=== PATIENT | female | born 1945 | race Caucasian/White ===

== ENCOUNTER → 2017-01-28 | Outpatient (CLI) | payer MEDICARE, BC ==
[2017-01-28 12:35] LABS: Basophils # (A) 0.1 k/uL (0-0.2); Basophils % (A) 1 %; CH 31.1; CHCM 33.4; Eosinophils # (A) 0.2 k/uL (0-0.7); Eosinophils % (A) 3 %; HCT 48.8 % (34.0-46.0); HDW 2.33; HGB 16.1 gm/dL (11.4-16.0); Luc # (Auto) 0.19; Luc % (Auto) 3; Lymphocytes % (A) 27 %; MCH 30.7 pg (25.0-35.0); MCHC 32.9 g/dL (31.0-37.0); MCV 93.3 fL (80.0-100.0); Mean Platelet Volume 7.4; Monocytes # (A) 0.4 k/uL (0-1.0); Monocytes % (A) 5 %; Neutrophils # (A) 4.4 k/uL (1.3-7.7); Neutrophils % (A) 60 %; RBC 5.23 m/uL (3.80-5.40); RDW 12.9 % (11.5-15.5); WBC 7.3 k/uL (3.8-10.6); WBC (Perox) 7.57
[2017-01-28 13:03] LABS: ALT 49 U/L (9-52); AST 74 U/L (14-36); Alkaline Phosphatase 53 U/L (38-126); Anion Gap 12 mmol/L; Blood Urea Nitrogen 16 mg/dL (7-17); Calcium 10.1 mg/dL (8.4-10.2); Carbon Dioxide 26 mmol/L (22-30); Chloride 104 mmol/L (98-107); Glucose 120 mg/dL (74-99); Non-African American GFR(MDRD) >60 (>60 ml/min/1.73 sqM); Potassium 4.4 mmol/L (3.5-5.1); Sodium 142 mmol/L (137-145); Total Bilirubin 0.7 mg/dL (0.2-1.3); Total Protein 7.6 g/dL (6.3-8.2)
== END ==
LOC: LABWHC1 12:02
PROVIDERS: ATTEND Internal Medicine Gastroenterology
DX: K76.0 Fatty (change of) liver, not elsewhere classified (principal)
CPT/HCPCS: 36415; 80053; 85025

== ENCOUNTER → 2017-03-05 | Outpatient (CLI) | payer MEDICARE, BC ==
--- NOTE | 2017-03-05 13:28 | MM ---
Reason for exam: follow-up at short interval from prior study. Last mammogram was performed 6 months ago. History: Patient is postmenopausal, has history of colon cancer at age 65, and has history of bilateral breast cancer at age 62. Benign US biopsy breast VAD RT of the right breast, September 10, 2016. Benign left mammotome panel of the left breast, August 24, 2013. Excisional biopsy of the left breast, September 26, 2007. Malignant left mammotome panel of the left breast, September 10, 2007. Radiation therapy of the left breast, 2006. Stereotactic core biopsy, April 12, 2003. Benign stereotactic core biopsy of the right breast, March 20, 2000. Cyst aspiration of the right breast. Core biopsy of the right breast. Excisional biopsy of the right breast. Radiation therapy of the left breast. Took estrogen for 3 years beginning at age 51. Took antineoplastic for 2 years beginning at age 62. Physical Findings: Nurse did not find any significant physical abnormalities on exam. MG 3D Diag Mammo W/Cad RT CC and MLO view(s) were taken of the right breast. Prior study comparison: September 10, 2016, right breast MG diagnostic mammo RT wo CAD. August 27, 2016, right breast US breast RT. August 27, 2016, bilateral MG 3d diag mammo w/cad SHAY. August 15, 2015, bilateral MG 3d diag mammo w/cad SHAY. The breast tissue is heterogeneously dense. This may lower the sensitivity of mammography. Previous mammotome biopsy within the right breast x 2. There is chronic nodularity in the right breast. No significant new findings when compared with previous films. These results were verbally communicated with the patient and result sheet given to the patient on 03/05/17. ASSESSMENT: Incomplete: need additional imaging evaluation, BI-RAD 0 RECOMMENDATION: Ultrasound of the right breast.
--- NOTE | 2017-03-05 13:35 | USB ---
Reason for exam: additional evaluation requested from abnormal screening. History: Patient is postmenopausal, has history of colon cancer at age 65, and has history of bilateral breast cancer at age 62. Benign US biopsy breast VAD RT of the right breast, September 10, 2016. Benign left mammotome panel of the left breast, August 24, 2013. Excisional biopsy of the left breast, September 26, 2007. Malignant left mammotome panel of the left breast, September 10, 2007. Radiation therapy of the left breast, 2006. Stereotactic core biopsy, April 12, 2003. Benign stereotactic core biopsy of the right breast, March 20, 2000. Cyst aspiration of the right breast. Core biopsy of the right breast. Excisional biopsy of the right breast. Radiation therapy of the left breast. Took estrogen for 3 years beginning at age 51. Took antineoplastic for 2 years beginning at age 62. US Breast RT Right breast ultrasound includes all four quadrants, the retroareolar region and axilla. Finding demonstrate a 0.5 x 0.4 x 0.2cm too small to characterize lesion at 1 o'clock, a 0.4 x 0.3 x 0.4cm too small to characterize lesion at 5 o'clock, a 0.6 x 0.4 x 0.4cm mixed lesion at 6 o'clock, this is very small and could represent a septated cyst, but internal flow is seen for which 6 month follow up is recommended, a 1.1 x 0.7 x 0.8cm mixed lesion, likely a complicated cyst for which a 6 month follow up is recommended, a 1.1 x 0.8 x 1.0cm cystic, benign lesion at 7 o'clock, a 1.2 x 1.1 x 1.2cm mixed lesion at 8 o'clock probably 2 adjacent complicated cysts for which a 6 month follow up is recommended, a 0.9 x 0.6 x 0.8 cystic, benign lesion at 9 o'clock , and a 0.8 x 0.8 x 0.6cm cystic, benign lesion at 11 o'clock. These results were verbally communicated with the patient and result sheet given to the patient on 03/05/17. ASSESSMENT: Probably benign, BI-RAD 3 RECOMMENDATION: Follow-up diagnostic mammogram of both breasts in 6 months. Back on schedule. Ultrasound of the right breast in 6 months.
== END | disposition home or self-care (01) ==
LOC: RADMAMWWP 09:32
PROVIDERS: ATTEND Surgery
DX: R92.8 Other abnormal and inconclusive findings on diagnostic imaging of breast (principal); R92.2 Inconclusive mammogram
CPT/HCPCS: 76641; G0206; G0279

== ENCOUNTER → 2017-08-26 | Outpatient (CLI) | payer MEDICARE, BC ==
[2017-08-26 09:32] LABS: HCT 50.6 % (34.0-46.0); HGB 16.5 gm/dL (11.4-16.0); MCH 29.9 pg (25.0-35.0); MCHC 32.6 g/dL (31.0-37.0); MCV 91.6 fL (80.0-100.0); Mean Platelet Volume 8.2; Platelet Count 196 k/uL (150-450); RBC 5.53 m/uL (3.80-5.40); RDW 13.9 % (11.5-15.5); WBC 6.6 k/uL (3.8-10.6)
[2017-08-26 09:55] LABS: ALT 59 U/L (9-52); AST 70 U/L (14-36); Albumin 4.3 g/dL (3.5-5.0); Alkaline Phosphatase 54 U/L (38-126); Anion Gap 7 mmol/L; Blood Urea Nitrogen 12 mg/dL (7-17); Carbon Dioxide 30 mmol/L (22-30); Chloride 107 mmol/L (98-107); Cholesterol 153 mg/dL (<200); Glucose 105 mg/dL (74-99); HDL Cholesterol 52 mg/dL (40-60); LDL Cholesterol,Calculated 74 mg/dL (0-99); Potassium 4.6 mmol/L (3.5-5.1); Sodium 144 mmol/L (137-145); Total Bilirubin 0.7 mg/dL (0.2-1.3); Total Protein 7.6 g/dL (6.3-8.2); Triglycerides 135 mg/dL (<150)
== END | disposition home or self-care (01) ==
LOC: LABWHC1 08:53
PROVIDERS: ATTEND Family Medicine
DX: R94.5 Abnormal results of liver function studies (principal); Z13.6 Encounter for screening for cardiovascular disorders; R53.83 Other fatigue
CPT/HCPCS: 36415; 80053; 80061; 84443; 85027

== ENCOUNTER → 2017-09-06 | Outpatient (CLI) | payer MEDICARE, BC ==
--- NOTE | 2017-09-06 11:12 | USB ---
Reason for exam: follow-up at short interval from prior study. History: Patient is postmenopausal, has history of colon cancer at age 65, and has history of bilateral breast cancer at age 62. Benign US biopsy breast VAD RT of the right breast, September 10, 2016. Benign left mammotome panel of the left breast, August 24, 2013. Excisional biopsy of the left breast, September 26, 2007. Malignant left mammotome panel of the left breast, September 10, 2007. Radiation therapy of the left breast, 2006. Stereotactic core biopsy, April 12, 2003. Benign stereotactic core biopsy of the right breast, March 20, 2000. Cyst aspiration of the right breast. Core biopsy of the right breast. Excisional biopsy of the right breast. Radiation therapy of the left breast. Took estrogen for 3 years beginning at age 51. Took antineoplastic for 2 years beginning at age 62. US Breast RT Right breast ultrasound includes all four quadrants, the retroareolar region and axilla. Finding demonstrates a 0.4 x 0.4 x 0.4cm oval, mixed, vascular lesion at 6 o'clock, a 0.5 x 1.1 x 0.7cm oval, cystic lesion at 7 o'clock, a 0.3 x 0.4 x 0.3cm oval, mixed lesion at 7 o'clock, a 2.9 x 1.8 x 1.0cm oval, irregular, cystic lesion at 8 o'clock that correlates with mammographic findings, a 0.9 x 0.9 x 0.5cm oval, cystic lesion at 9 o'clock, a 1.1 x 1.1 x 0.8cm oval, lobular, cystic lesion at 10 o'clock that correlates with mammographic findings, 0.8 x 0.9 x 0.5cm oval, cystic lesion at 12 o'clock, a 0.6 x 0.6 x 0.4cm irregular, hypoechoic lesion at 12 o'clock, a 0.4 x 0.3 x 0.3cm oval, hypoechoic lesion at 1 o'clock, a 0.6 x 0.3 x 0.3cm oval, hypoechoic lesion at 1 o'clock, a 0.7 x 0.5 x 0.6cm oval, mixed lesion at 3 o'clock and a 0.6 x 0.5 x 0.2cm oval, hypoechoic lesion at 5 o'clock. These results were verbally communicated with the patient and result sheet given to the patient on 09/06/17. ASSESSMENT: Benign, BI-RAD 2 RECOMMENDATION: Routine screening mammogram of both breasts in 1 year.
--- NOTE | 2017-09-11 08:36 | MM ---
Reason for exam: follow-up at short interval from prior study. Last mammogram was performed 6 months ago. History: Patient is postmenopausal, has history of colon cancer at age 65, and has history of bilateral breast cancer at age 62. Benign US biopsy breast VAD RT of the right breast, September 10, 2016. Benign left mammotome panel of the left breast, August 24, 2013. Excisional biopsy of the left breast, September 26, 2007. Malignant left mammotome panel of the left breast, September 10, 2007. Radiation therapy of the left breast, 2006. Stereotactic core biopsy, April 12, 2003. Benign stereotactic core biopsy of the right breast, March 20, 2000. Cyst aspiration of the right breast. Core biopsy of the right breast. Excisional biopsy of the right breast. Radiation therapy of the left breast. Took estrogen for 3 years beginning at age 51. Took antineoplastic for 2 years beginning at age 62. Physical Findings: Nurse did not find any significant physical abnormalities on exam. MG 3D Diag Mammo W/Cad SHAY Bilateral CC and MLO view(s) were taken. Prior study comparison: March 05, 2017, right breast MG 3d diag mammo w/cad RT. September 10, 2016, right breast MG diagnostic mammo RT wo CAD. The breast tissue is extremely dense which could obscure a lesion on mammography. Previous mammotome biopsy in the right breast x 2. There is chronic nodularity in the right breast, some enlarging cysts on the right breast are present. Posterior surgical changes left breast. These results were verbally communicated with the patient and result sheet given to the patient on 09/06/17. ASSESSMENT: Benign, BI-RAD 2 RECOMMENDATION: Routine screening mammogram of both breasts in 1 year.
== END | disposition home or self-care (01) ==
LOC: RADMAMWWP 08:55
PROVIDERS: ATTEND Surgery
DX: R92.8 Other abnormal and inconclusive findings on diagnostic imaging of breast (principal)
CPT/HCPCS: 76641; G0204; G0279

== ENCOUNTER → 2018-01-27 | Outpatient (CLI) | payer MEDICARE, BC ==
[2018-01-27 11:03] LABS: Basophils # (A) 0.1 k/uL (0-0.2); Basophils % (A) 1 %; Eosinophils # (A) 0.2 k/uL (0-0.7); Eosinophils % (A) 3 %; HCT 47.6 % (34.0-46.0); HGB 15.8 gm/dL (11.4-16.0); Lymphocytes # (A) 1.8 k/uL (1.0-4.8); Lymphocytes % (A) 31 %; MCH 29.7 pg (25.0-35.0); MCHC 33.1 g/dL (31.0-37.0); MCV 89.5 fL (80.0-100.0); Monocytes # (A) 0.3 k/uL (0-1.0); Monocytes % (A) 6 %; Neutrophils # (A) 3.3 k/uL (1.3-7.7); Neutrophils % (A) 58 %; Platelet Count 196 k/uL (150-450); RBC 5.31 m/uL (3.80-5.40); RDW 12.7 % (11.5-15.5); WBC 5.7 k/uL (3.8-10.6)
[2018-01-27 11:16] LABS: Albumin 4.1 g/dL (3.5-5.0); Calcium 9.6 mg/dL (8.4-10.2); Total Bilirubin 0.6 mg/dL (0.2-1.3)
== END | disposition home or self-care (01) ==
LOC: LABWHC1 10:26
PROVIDERS: ATTEND Internal Medicine Gastroenterology
DX: K76.0 Fatty (change of) liver, not elsewhere classified (principal)
CPT/HCPCS: 36415; 80053; 85025

== ENCOUNTER → 2018-10-30 | Outpatient (CLI) | payer MEDICARE ==
--- NOTE | 2018-10-31 08:12 | MM ---
Reason for exam: additional evaluation requested from prior study. Last mammogram was performed 1 year and 2 months ago. History: Patient is postmenopausal, has history of colon cancer at age 65, and has history of bilateral breast cancer at age 62. Benign US biopsy breast VAD RT of the right breast, September 10, 2016. Benign left mammotome panel of the left breast, August 24, 2013. Excisional biopsy of the left breast, September 26, 2007. Malignant left mammotome panel of the left breast, September 10, 2007. Radiation therapy of the left breast, 2006. Stereotactic core biopsy, April 12, 2003. Benign stereotactic core biopsy of the right breast, March 20, 2000. Cyst aspiration of the right breast. Core biopsy of the right breast. Excisional biopsy of the right breast. Radiation therapy of the left breast. Took estrogen for 3 years beginning at age 51. Took antineoplastic for 2 years beginning at age 62. Physical Findings: Nurse Summary: 0.5 x 1cm nodule in the right breast at 1 o'clock (nurse ts). MG 3D Diag Mammo W/Cad SHAY Bilateral CC and MLO view(s) were taken. Prior study comparison: September 06, 2017, bilateral MG 3d diag mammo w/cad SHAY. March 05, 2017, right breast MG 3d diag mammo w/cad RT. September 10, 2016, right breast MG diagnostic mammo RT wo CAD. August 27, 2016, bilateral MG 3d diag mammo w/cad SHAY. August 15, 2015, bilateral MG 3d diag mammo w/cad SHAY. The breast tissue is heterogeneously dense. This may lower the sensitivity of mammography. There are benign appearing round oval circumscribed right masses back to 2014. Benign calcifications in the right breast, similar to priors. Right biopsy marker noted. No suspicious abnormality. Post lumpectomy change on the left. These results were verbally communicated with the patient and result sheet given to the patient on 10/30/18. ASSESSMENT: Benign, BI-RAD 2 RECOMMENDATION: Routine screening mammogram of both breasts in 1 year.
--- NOTE | 2018-10-31 08:19 | USB ---
Reason for exam: additional evaluation requested from prior study. History: Patient is postmenopausal, has history of colon cancer at age 65, and has history of bilateral breast cancer at age 62. Benign US biopsy breast VAD RT of the right breast, September 10, 2016. Benign left mammotome panel of the left breast, August 24, 2013. Excisional biopsy of the left breast, September 26, 2007. Malignant left mammotome panel of the left breast, September 10, 2007. Radiation therapy of the left breast, 2006. Stereotactic core biopsy, April 12, 2003. Benign stereotactic core biopsy of the right breast, March 20, 2000. Cyst aspiration of the right breast. Core biopsy of the right breast. Excisional biopsy of the right breast. Radiation therapy of the left breast. Took estrogen for 3 years beginning at age 51. Took antineoplastic for 2 years beginning at age 62. US Breast RT Right complete breast ultrasound includes all four quadrants, the retroareolar region and axilla. Finding demonstrates a 1.2 x 1.1 x 0.7cm oval, cystic, complex lesion at 1 o'clock, a 1.0 x 0.8 x 0.5cm oval, cystic lesion at 1 o'clock BB, a 0.5 x 0.4 x 0.3cm oval, mixed, probably benign lesion at 1 o'clock BB no clear increase through transmission, a 1.0 x 0.5 x 0.7cm oval, mixed, probably benign lesion at 3 o'clock well defined posterior wall, 0.2cm duct ectasia at 6 o'clock, a 1.6 x 1.2 x 1.1cm oval, cystic lesion at 8 o'clock, a 1.8 x 1.3 x 1.0cm cystic lesion at 9 o'clock, a 1.5 x 1.4 x 1.1cm cystic lesion at 10 o'clock and a 1.3 x 1.2 x 0.7cm cystic lesion at the posterior nipple. These results were verbally communicated with the patient and result sheet given to the patient on 10/30/18. ASSESSMENT: Probably benign, BI-RAD 3 RECOMMENDATION: Ultrasound of the right breast in 6 months.
--- NOTE | 2018-11-03 07:55 | BD ---
EXAMINATION TYPE: Axial Bone Density DATE OF EXAM: 10/30/2018 COMPARISON: NONE CLINICAL HISTORY: Height: 5 FT 3 1/5 IN Weight: 188 FRAX RISK QUESTIONS: Family History (Parent hip fracture): YES Secondary Osteoporosis: 5. Chronic liver disease: FATTY RISK FACTORS HISTORY OF: Active: YES Postmenopausal woman: AGE 49 Take estrogen and/or progesterone medications: DID TAKE HRT UNSURE WHEN AND FOR HOW LONG MEDICATIONS: Additional Medications: NONE Additional History: HAS HAD BREAST CA AND COLON CANCER RADIATION TO BREAST EXAM MEASUREMENTS: Bone mineral densitometry was performed using the [employer] System. Bone mineral density as measured about the Lumbar spine is: ----- L1-L4(G/cm2): 1.304 T Score Values are as follows: ----- L2: -0.7 ----- L3: 0.8 ----- L4: 3.6 ----- L1-L4: 1.0 Bone mineral density has: INCREASED 4.0 % since study of: 2005 Bone mineral density about the R hip (g/cm2): 0.838 Bone mineral density about the L hip (g/cm2): 0.842 T Score values are as follows: -----R Neck: -1.4 -----L Neck: -1.4 -----R Total: -0.7 -----L Total: -0.4 Bone mineral density has: INCREASED 8.3 % since study of: 2005 IMPRESSION: Osteopenia (T Score between -2.5 and -1) at femoral neck level in both hips. There is slightly increased risk of fracture and the patient may be considered for treatment. Re-Screen 2-5 years. NOTE: T-SCORE=SD OF THE YOUNG ADULT MEAN.
== END | disposition home or self-care (01) ==
LOC: RADMAMWWP 14:11
PROVIDERS: ATTEND Family Medicine
DX: N63.12 Unspecified lump in the right breast, upper inner quadrant (principal); M85.88 Other specified disorders of bone density and structure, other site; Z85.3 Personal history of malignant neoplasm of breast; Z78.0 Asymptomatic menopausal state
CPT/HCPCS: 77080; 77066; 76641; G0279; 77062

== ENCOUNTER → 2019-01-22 | Outpatient (CLI) | payer MEDICARE ==
--- NOTE | 2019-01-22 12:14 | XR ---
EXAMINATION TYPE: XR Hip Complete RT DATE OF EXAM: 01/22/2019 COMPARISON: NONE HISTORY: Pain TECHNIQUE: 2 views submitted FINDINGS: There is no evidence of erosive change or acute fracture. Mild concentric narrowing of the joint space. IMPRESSION: 1. No evidence of acute fracture or dislocation. Mild arthropathy.
--- NOTE | 2019-01-22 12:16 | XR ---
EXAM TYPE: LUMBAR SPINE X RAY SERIES COMPARISON: NONE HISTORY: Back pain TECHNIQUE: 3 views are submitted. FINDINGS: Postsurgical changes are seen involving the abdomen. There is a curvature the spine with mild diffuse osteopenia. Vascular calcifications noted. There is severe multilevel degenerative disc disease with most marked findings at L3-4 and L4-L5. The re is a grade 1 anterolisthesis of L3 on L4. Multilevel facet arthropathy noted. Foraminal encroachme nt levels L2-S1 suspected. IMPRESSION: 1. Multilevel severe degenerative disc disease with multilevel facet arthropathy and grade 1 anteroli sthesis L3 on L4.
== END | disposition home or self-care (01) ==
LOC: RADXRMAIN 11:25
PROVIDERS: ATTEND Physician Assistant Medical
DX: M16.11 Unilateral primary osteoarthritis, right hip (principal); M43.16 Spondylolisthesis, lumbar region; M51.36 Other intervertebral disc degeneration, lumbar region; M46.96 Unspecified inflammatory spondylopathy, lumbar region
CPT/HCPCS: 72100; 73502

== ENCOUNTER → 2019-02-24 | Outpatient (CLI) | payer MEDICARE ==
[2019-02-24 16:47] LABS: Albumin 4.5 g/dL (3.80-4.90); Albumin/Globulin Ratio 2.05 (1.60-3.17); Anion Gap 8.9 mmol/L (4.00-12.00); Calcium 9.6 mg/dL (8.7-10.3); Carbon Dioxide 27.1 mmol/L (21.6-31.8); Globulin 2.2 g/dL (1.6-3.3); Potassium 3.9 mmol/L (3.5-5.5); Total Bilirubin 0.5 mg/dL (0.3-1.2); Total Protein 6.7 g/dL (6.2-8.2)
== END | disposition home or self-care (01) ==
LOC: LABWHC1 10:16
PROVIDERS: ATTEND Internal Medicine Gastroenterology
DX: K76.0 Fatty (change of) liver, not elsewhere classified (principal)
CPT/HCPCS: 36415; 80053

== ENCOUNTER → 2019-04-09 | Outpatient (CLI) | payer MEDICARE ==
--- NOTE | 2019-04-09 13:49 | USB ---
Reason for exam: additional evaluation requested from abnormal screening. History: Patient is postmenopausal, has history of colon cancer at age 65, and has history of bilateral breast cancer at age 62. Benign US biopsy breast VAD RT of the right breast, September 10, 2016. Benign left mammotome panel of the left breast, August 24, 2013. Excisional biopsy of the left breast, September 26, 2007. Malignant left mammotome panel of the left breast, September 10, 2007. Radiation therapy of the left breast, 2006. Stereotactic core biopsy, April 12, 2003. Benign stereotactic core biopsy of the right breast, March 20, 2000. Cyst aspiration of the right breast. Core biopsy of the right breast. Excisional biopsy of the right breast. Radiation therapy of the left breast. Took estrogen for 3 years beginning at age 51. Took antineoplastic for 2 years beginning at age 62. Physical Findings: Nurse Summary: palpable at 5 o'clock (nurse kp). US Breast RT Right complete breast ultrasound includes all four quadrants, the retroareolar region and axilla. Finding demonstrates a 1.2 x 1.2 x 0.9cm oval, cystic cluster at 1 o'clock, a 0.6 x 0.5 x 0.2cm oval, cystic, hypoechoic lesion at 1 o'clock, a 0.6 x 0.7 x 0.3cm oval, cystic lesion at 2 o'clock, a 0.7 x 0.6 x 0.5cm oval, cystic cluster at 3 o'clock, a 0.6 x 0.6 x 0.6cm oval, cystic lesion at 5 o'clock previously biopsied with marker, a 1.0 x 1.0 x 0.7cm oval, cystic lesion at 6 o'clock, a 0.3cm ductal ectasia at 6 o'clock, a 0.7 x 0.7 x 0.5cm oval, cystic lesion at 9 o'clock and a 2.3 x 1.7 x 1.0cm oval lesion at 10 o'clock. These results were verbally communicated with the patient and result sheet given to the patient on 04/09/19. ASSESSMENT: Benign, BI-RAD 2 RECOMMENDATION: Follow-up diagnostic mammogram of both breasts in 6 months. Back on schedule. Ultrasound of the right breast in 6 months.
== END | disposition home or self-care (01) ==
LOC: RADUSWWP 09:27
PROVIDERS: ATTEND Family Medicine
DX: Z08 Encounter for follow-up examination after completed treatment for malignant neoplasm (principal); Z85.3 Personal history of malignant neoplasm of breast

== ENCOUNTER → 2019-08-28 | Outpatient (CLI) | payer MEDICARE ==
[2019-08-28 17:45] LABS: African American GFR (CKD) 72.5 (60.0-200.0); Albumin 4.3 g/dL (3.80-4.90); Albumin/Globulin Ratio 1.87 (1.60-3.17); Globulin 2.3 g/dL (1.6-3.3); Total Bilirubin 0.6 mg/dL (0.2-1.2); Total Protein 6.6 g/dL (6.2-8.2)
== END | disposition home or self-care (01) ==
LOC: LABWHC1 11:35
PROVIDERS: ATTEND Internal Medicine Gastroenterology
DX: K76.0 Fatty (change of) liver, not elsewhere classified (principal)
CPT/HCPCS: 36415; 80053

== ENCOUNTER → 2019-12-01 | Outpatient (CLI) | payer MEDICARE ==
--- NOTE | 2019-12-01 10:06 | MM ---
Reason for exam: additional evaluation requested from prior study. Last mammogram was performed 1 year and 1 month ago. History: Patient is postmenopausal, has history of colon cancer at age 65, and has history of bilateral breast cancer at age 62. Benign US biopsy breast VAD RT of the right breast, September 10, 2016. Benign left mammotome panel of the left breast, August 24, 2013. Excisional biopsy of the left breast, September 26, 2007. Malignant left mammotome panel of the left breast, September 10, 2007. Radiation therapy of the left breast, 2006. Stereotactic core biopsy, April 12, 2003. Benign stereotactic core biopsy of the right breast, March 20, 2000. Cyst aspiration of the right breast. Core biopsy of the right breast. Excisional biopsy of the right breast. Radiation therapy of the left breast. Took estrogen for 3 years beginning at age 51. Took antineoplastic for 2 years beginning at age 62. Physical Findings: Nurse did not find any significant physical abnormalities on exam. MG 3D Diag Mammo W/Cad SHAY Bilateral CC and MLO view(s) were taken. Prior study comparison: October 30, 2018, bilateral MG 3d diag mammo w/cad SHAY. September 06, 2017, bilateral MG 3d diag mammo w/cad SHAY. The breast tissue is heterogeneously dense. This may lower the sensitivity of mammography. Previous mammotome biopsy in the right breast x 2. Increasing nodularity on the right. Post surgical change left breast with fat necrosis calcifications. These results were verbally communicated with the patient and result sheet given to the patient on 12/01/19. ASSESSMENT: Incomplete: need additional imaging evaluation, BI-RAD 0 RECOMMENDATION: Ultrasound of the right breast.
--- NOTE | 2019-12-01 10:07 | USB ---
Reason for exam: additional evaluation requested from abnormal screening. History: Patient is postmenopausal, has history of colon cancer at age 65, and has history of bilateral breast cancer at age 62. Benign US biopsy breast VAD RT of the right breast, September 10, 2016. Benign left mammotome panel of the left breast, August 24, 2013. Excisional biopsy of the left breast, September 26, 2007. Malignant left mammotome panel of the left breast, September 10, 2007. Radiation therapy of the left breast, 2006. Stereotactic core biopsy, April 12, 2003. Benign stereotactic core biopsy of the right breast, March 20, 2000. Cyst aspiration of the right breast. Core biopsy of the right breast. Excisional biopsy of the right breast. Radiation therapy of the left breast. Took estrogen for 3 years beginning at age 51. Took antineoplastic for 2 years beginning at age 62. US Breast RT Right complete breast ultrasound includes all four quadrants, the retroareolar region and axilla. Finding demonstrates a 2.3 x 2.3 x 1.1cm cystic lesion at 10 o'clock. Multiple cysts throughout, approximately 11 are counted, largest at 10 o'clock, likely corresponds to the mammographic finding. These results were verbally communicated with the patient and result sheet given to the patient on 12/01/19. ASSESSMENT: Probably benign, BI-RAD 3 RECOMMENDATION: Follow-up diagnostic mammogram of both breasts in 1 year.
== END | disposition home or self-care (01) ==
LOC: RADMAMWWP 08:16
PROVIDERS: ATTEND Family Medicine
DX: R92.8 Other abnormal and inconclusive findings on diagnostic imaging of breast (principal)
CPT/HCPCS: 77066; 76641; G0279; 77062

== ENCOUNTER → 2020-06-06 | Outpatient (CLI) | payer MEDICARE ==
[2020-06-06 19:36] LABS: Albumin 4.4 g/dL (3.80-4.90); Albumin/Globulin Ratio 1.76 (1.60-3.17); Anion Gap 9.1 mmol/L (4.00-12.00); BUN/Creat Ratio 15.56 Ratio (12.00-20.00); Calcium 9.9 mg/dL (8.7-10.3); Carbon Dioxide 26.9 mmol/L (21.6-31.8); Globulin 2.5 g/dL (1.6-3.3); Non-African American GFR(CKD) 62.1 (60.0-200.0); Potassium 4.1 mmol/L (3.5-5.5); Total Bilirubin 0.6 mg/dL (0.2-1.2); Total Protein 6.9 g/dL (6.2-8.2)
== END | disposition home or self-care (01) ==
LOC: LABWHC1 11:21
PROVIDERS: ATTEND Internal Medicine Gastroenterology
DX: K76.0 Fatty (change of) liver, not elsewhere classified (principal)
CPT/HCPCS: 36415; 80053; 81596

== ENCOUNTER → 2020-11-22 | Outpatient (CLI) | payer MEDICARE ==
--- NOTE | 2020-11-22 09:49 | MM ---
Reason for exam: additional evaluation requested from prior study. Last mammogram was performed 1 year ago. History: Patient is postmenopausal, has history of colon cancer at age 65, and has history of bilateral breast cancer at age 62. Benign US biopsy breast VAD RT of the right breast, September 10, 2016. Benign left mammotome panel of the left breast, August 24, 2013. Excisional biopsy of the left breast, September 26, 2007. Malignant left mammotome panel of the left breast, September 10, 2007. Radiation therapy of the left breast, 2006. Stereotactic core biopsy, April 12, 2003. Benign stereotactic core biopsy of the right breast, March 20, 2000. Cyst aspiration of the right breast. Core biopsy of the right breast. Excisional biopsy of the right breast. Radiation therapy of the left breast. Took estrogen for 3 years beginning at age 51. Took antineoplastic for 2 years beginning at age 62. Physical Findings: Nurse did not find any significant physical abnormalities on exam. MG 3D Diag Mammo W/Cad SHAY Bilateral CC and MLO view(s) were taken. XCCL view(s) were taken of the left breast. Prior study comparison: December 01, 2019, bilateral MG 3d diag mammo w/cad SHAY. October 30, 2018, bilateral MG 3d diag mammo w/cad SHAY. The breast tissue is heterogeneously dense. This may lower the sensitivity of mammography. Previous mammotome biopsy in the right breast x 2. Medial asymmetric density left CC view was present in 2017 as well. Post surgical and post therapy change left breast. Fluctuating nodularity right breast, three increased slightly in size. 6 month follow up recommended. These results were verbally communicated with the patient and result sheet given to the patient on 11/22/20. ASSESSMENT: Probably benign, BI-RAD 3 RECOMMENDATION: Follow-up diagnostic mammogram of the right breast in 6 months. (3D)
--- NOTE | 2020-11-22 14:04 | BD ---
EXAMINATION TYPE: Axial Bone Density DATE OF EXAM: 11/22/2020 COMPARISON: NONE CLINICAL HISTORY: Height: 63 Weight: 188.2 FRAX RISK QUESTIONS: Alcohol (3 or more units per day): no Family History (Parent hip fracture): yes Glucocorticoids (More than 3mos): no (Ex: prednisone, prednisolone, methylprednisolone, dexamethasone, and hydrocortisone). History of Fracture in Adulthood: no Secondary Osteoporosis: 1. Type 1 Diabetes: no 2. Hyperthyroidism: no 3. Menopause before 45: no 4. Malnutrition: no 5. Chronic liver disease: yes Rheumatoid Arthritis: no Current Tobacco Use: no RISK FACTORS HISTORY OF: Family History of Osteoporosis: no Active: yes Diet low in dairy products/other sources of calcium: no Postmenopausal woman: age 49 Lost more than 2 inches in height since high school: no MEDICATIONS: none Additional History: EXAM MEASUREMENTS: Bone mineral densitometry was performed using the [employer] System. Bone mineral density as measured about the Lumbar spine is: ----- L1-L4(G/cm2): 1.345 T Score Values are as follows: ----- L2: -0.3 ----- L3: 0.5 ----- L4: 3.4 ----- L1-L4: 1.4 Bone mineral density has: 0 % since study of: 10.30.2018 Bone mineral density about the R hip (g/cm2): 0.854 Bone mineral density about the L hip (g/cm2): 0.812 T Score values are as follows: -----R Neck: -1.3 -----L Neck: -1.6 -----R Total: -0.4 -----L Total: -0.5 Bone mineral density has: increased 0.6 % since study of: 10.30.2018 IMPRESSION: No evidence for osteoporosis or osteopenia. NOTE: T-SCORE=SD OF THE YOUNG ADULT MEAN.
== END | disposition home or self-care (01) ==
LOC: RADMAMWWP 08:15
PROVIDERS: ATTEND Family Medicine
DX: Z08 Encounter for follow-up examination after completed treatment for malignant neoplasm (principal); Z85.3 Personal history of malignant neoplasm of breast; M85.9 Disorder of bone density and structure, unspecified
CPT/HCPCS: 77080; 77066; G0279; 77062

== ENCOUNTER → 2021-01-02 | Outpatient (CLI) | payer MEDICARE ==
[2021-01-02 20:54] LABS: African American GFR (CKD) 63.4 (60.0-200.0); Albumin 4.6 g/dL (3.80-4.90); Albumin/Globulin Ratio 1.84 (1.60-3.17); Anion Gap 7.9 mmol/L (4.00-12.00); Carbon Dioxide 30.1 mmol/L (21.6-31.8); Globulin 2.5 g/dL (1.6-3.3); Non-African American GFR(CKD) 54.7 (60.0-200.0); Potassium 3.7 mmol/L (3.5-5.5); Total Bilirubin 0.6 mg/dL (0.3-1.2); Total Protein 7.1 g/dL (6.2-8.2)
== END | disposition home or self-care (01) ==
LOC: LABWHC1 11:20
PROVIDERS: ATTEND Internal Medicine Gastroenterology
DX: K76.0 Fatty (change of) liver, not elsewhere classified (principal)
CPT/HCPCS: 36415; 80053

== ENCOUNTER → 2021-05-23 | Outpatient (CLI) | payer MEDICARE ==
--- NOTE | 2021-05-26 13:30 | MM ---
Reason for exam: follow-up at short interval from prior study. Last mammogram was performed 6 months ago. History: Patient is postmenopausal, has history of colon cancer at age 65, and has history of bilateral breast cancer at age 62. Benign US biopsy breast VAD RT of the right breast, September 10, 2016. Benign left mammotome panel of the left breast, August 24, 2013. Excisional biopsy of the left breast, September 26, 2007. Malignant left mammotome panel of the left breast, September 10, 2007. Radiation therapy of the left breast, 2006. Stereotactic core biopsy, April 12, 2003. Benign stereotactic core biopsy of the right breast, March 20, 2000. Cyst aspiration of the right breast. Core biopsy of the right breast. Excisional biopsy of the right breast. Radiation therapy of the left breast. Took estrogen for 3 years beginning at age 51. Took antineoplastic for 1 year beginning at age 62. Physical Findings: Nurse did not find any significant physical abnormalities on exam. MG 3D Diag Mammo W/Cad RT CC and MLO view(s) were taken of the right breast. Prior study comparison: November 22, 2020, bilateral MG 3d diag mammo w/cad [facility]. December 01, 2019, bilateral MG 3d diag mammo w/cad [facility]. The breast tissue is heterogeneously dense. This may lower the sensitivity of mammography. There is chronic nodularity in the right breast. No significant new findings when compared with previous films. These results were verbally communicated with the patient and result sheet given to the patient on 05/23/21. ASSESSMENT: Benign, BI-RAD 2 RECOMMENDATION: Follow-up diagnostic mammogram of both breasts in 6 months.
== END | disposition home or self-care (01) ==
LOC: RADMAMWWP 08:54
PROVIDERS: ATTEND Family Medicine
DX: N63.10 Unspecified lump in the right breast, unspecified quadrant (principal); Z78.0 Asymptomatic menopausal state; Z85.3 Personal history of malignant neoplasm of breast; Z85.038 Personal history of other malignant neoplasm of large intestine
CPT/HCPCS: 77065; G0279; 77061

== ENCOUNTER → 2021-07-05 | Outpatient (CLI) | payer MEDICARE ==
[2021-07-05 16:05] LABS: HCT 48.5 % (37.2-46.3); HGB 16.1 g/dL (12.0-15.0); MCH 30.6 pg (27.0-32.0); MCHC 33.2 g/dL (32.0-37.0); MCV 92.2 fL (80.0-97.0); Mean Platelet Volume 11.5 fL (9.5-12.2); Platelet Count 198 X 10*3/uL (140-440); RBC 5.26 X 10*6/uL (4.10-5.20); RDW 12.9 % (11.5-14.5); WBC 4.71 X 10*3/uL (4.50-10.00)
[2021-07-05 23:06] LABS: African American GFR (CKD) 71.5 (60.0-200.0); Albumin 4.4 g/dL (3.80-4.90); Albumin/Globulin Ratio 1.57 (1.60-3.17); Anion Gap 13.5 mmol/L (4.00-12.00); BUN/Creat Ratio 17.78 Ratio (12.00-20.00); Calcium 9.6 mg/dL (8.7-10.3); Carbon Dioxide 22.5 mmol/L (21.6-31.8); Globulin 2.8 g/dL (1.6-3.3); Non-African American GFR(CKD) 61.7 (60.0-200.0); Potassium 4.2 mmol/L (3.5-5.5); Total Bilirubin 0.6 mg/dL (0.2-1.2); Total Protein 7.2 g/dL (6.2-8.2)
== END | disposition home or self-care (01) ==
LOC: LABWHC1 08:54
PROVIDERS: ATTEND Internal Medicine Gastroenterology
DX: K76.0 Fatty (change of) liver, not elsewhere classified (principal)
CPT/HCPCS: 36415; 80053; 85027

== ENCOUNTER → 2021-11-23 | Outpatient (CLI) | payer MEDICARE ==
--- NOTE | 2021-11-23 14:25 | MM ---
Reason for exam: additional evaluation requested from prior study. Last mammogram was performed 6 months ago. History: Patient is postmenopausal, has history of colon cancer at age 65, and has history of bilateral breast cancer at age 62. Benign US biopsy breast VAD RT of the right breast, September 10, 2016. Benign left mammotome panel of the left breast, August 24, 2013. Excisional biopsy of the left breast, September 26, 2007. Malignant left mammotome panel of the left breast, September 10, 2007. Radiation therapy of the left breast, 2006. Stereotactic core biopsy, April 12, 2003. Benign stereotactic core biopsy of the right breast, March 20, 2000. Cyst aspiration of the right breast. Core biopsy of the right breast. Excisional biopsy of the right breast. Radiation therapy of the left breast. Took estrogen for 3 years beginning at age 51. Took antineoplastic for 1 year beginning at age 62. Physical Findings: Nurse did not find any significant physical abnormalities on exam. MG 3D Diag Mammo W/Cad [facility] Bilateral CC and MLO view(s) were taken. Prior study comparison: May 23, 2021, right breast MG 3d diag mammo w/cad RT. November 22, 2020, bilateral MG 3d diag mammo w/cad [facility]. The breast tissue is heterogeneously dense. This may lower the sensitivity of mammography. Previous mammotome biopsy in the right breast. There is chronic nodularity in the right breast. Asymmetric breast tissue bilaterally, greater in the right breast. These results were verbally communicated with the patient and result sheet given to the patient on 11/23/21. ASSESSMENT: Benign, BI-RAD 2 RECOMMENDATION: Routine screening mammogram of both breasts in 1 year.
== END | disposition home or self-care (01) ==
LOC: RADMAMWWP 12:59
PROVIDERS: ATTEND Family Medicine
DX: R92.8 Other abnormal and inconclusive findings on diagnostic imaging of breast (principal); Z85.3 Personal history of malignant neoplasm of breast; Z78.0 Asymptomatic menopausal state
CPT/HCPCS: 77066; G0279; 77062

== ENCOUNTER → 2022-01-08 | Outpatient (CLI) | payer MEDICARE ==
[2022-01-08 19:09] LABS: HCT 47.3 % (37.2-46.3); HGB 15.4 g/dL (12.0-15.0); MCHC 32.6 g/dL (32.0-37.0); Mean Platelet Volume 11.5 fL (9.5-12.2); NRBC Per 100 WBC 0 /100 WBCS (0.0-0.0); Platelet Count 208 X 10*3/uL (140-440); RBC 5.14 X 10*6/uL (4.10-5.20); RDW 12.7 % (11.5-14.5); WBC 7.87 X 10*3/uL (4.50-10.00)
[2022-01-08 19:14] LABS: African American GFR (CKD) 79.3 (60.0-200.0); Albumin 4.1 g/dL (3.8-4.9); Albumin/Globulin Ratio 1.23 (1.60-3.17); BUN/Creat Ratio 17.8 Ratio (12.00-20.00); Blood Urea Nitrogen 14.7 mg/dL (9.0-27.0); Calcium 10.1 mg/dL (8.7-10.3); Carbon Dioxide 26.2 mmol/L (20.0-27.5); Globulin 3.3 g/dL (1.6-3.3); Non-African American GFR(CKD) 68.4 (60.0-200.0); Potassium 3.8 mmol/L (3.5-5.5); Total Bilirubin 0.5 mg/dL (0.30-1.20); Total Protein 7.4 g/dL (6.2-8.2)
== END | disposition home or self-care (01) ==
LOC: LABWHC1 13:36
PROVIDERS: ATTEND Internal Medicine Gastroenterology
DX: K76.0 Fatty (change of) liver, not elsewhere classified (principal)
CPT/HCPCS: 36415; 80053; 85027

== ENCOUNTER → 2022-09-06 | Outpatient (CLI) | payer MEDICARE ==
--- NOTE | 2022-09-06 14:06 | XR ---
EXAMINATION TYPE: XR Hip Complete LT DATE OF EXAM: 09/06/2022 COMPARISON: NONE HISTORY: Pain TECHNIQUE: 2 views submitted FINDINGS: There is no evidence of erosive change or acute fracture. IMPRESSION: 1. No evidence of acute fracture or dislocation.
== END | disposition home or self-care (01) ==
LOC: RADXRMAIN 13:47
PROVIDERS: ATTEND Family Medicine
DX: M25.552 Pain in left hip (principal)
CPT/HCPCS: 73502

== ENCOUNTER → 2022-11-26 | Outpatient (CLI) | payer MEDICARE ==
--- NOTE | 2022-11-27 08:33 | MM ---
Reason for Exam: Screening (asymptomatic). Last screening mammogram was performed 12 month(s) ago. Patient History: Menarche at age 13. First Full-Term at age 25. Postmenopausal. Breast cancer, left, age 62. Previous chest radiation therapy at age 62. Estrogen for 1 year from age 51 until age 52. 09/26/2007, Excisional Biopsy on the Left side. Cyst Aspiration on the Right side. Core Biopsy on the Right side. Excisional Biopsy on the Right side. 09/10/2016, Benign Core Biopsy on the right side. 08/24/2013, Benign Core Biopsy on the left side. 09/10/2007, Malignant Core Biopsy on the left side. 04/12/2003, Stereotactic Core Biopsy. 03/20/2000, Benign Stereotactic Core Biopsy on the right side. Radiation Therapy, left. 2006, Radiation Therapy on the left side. Prior Study Comparison: 11/22/2020 Bilateral Diagnostic Mammogram, [facility]. 05/23/2021 Right Diagnostic Mammogram, [facility]. 11/23/2021 Bilateral Diagnostic Mammogram, [facility]. Tissue Density: The breast tissue is heterogeneously dense. This may lower the sensitivity of mammography. Findings: Analyzed By CAD. There is no suspicious group of microcalcifications within either breast. Benign calcifications within both breasts. No new suspicious mass within the left breast. Previous mammotome biopsy right breast x 2. Fluctuating nodularity within the right breast redemonstrated and increased in size. Postsurgical and postoperative changes of the left breast. Overall Assessment: Probably benign, BI-RAD 3 Management: Diagnostic Mammogram of the right breast in 6 months. A clinical breast exam by your physician is recommended on an annual basis and results should be correlated with mammographic findings. [facility] will attempt to contact patient to return for supplemental views and ultrasound if indicated. Electronically signed and approved by: Dave Fernando D.O.
== END | disposition home or self-care (01) ==
LOC: RADMAMWWP 13:15
PROVIDERS: ATTEND Family Medicine
DX: Z12.31 Encounter for screening mammogram for malignant neoplasm of breast (principal); Z78.0 Asymptomatic menopausal state; Z92.3 Personal history of irradiation
CPT/HCPCS: 77063; 77067

== ENCOUNTER → 2023-03-08 | Outpatient (CLI) | payer MEDICARE ==
[2023-03-08 20:47] LABS: HCT 47.7 % (37.2-46.3); HGB 15.8 g/dL (12.0-15.0); MCH 30.3 pg (27.0-32.0); MCHC 33.1 g/dL (32.0-37.0); MCV 91.4 fL (80.0-97.0); Mean Platelet Volume 11.5 fL (9.5-12.2); NRBC Per 100 WBC 0 /100 WBCS (0.0-0.0); Platelet Count 196 X 10*3/uL (140-440); RBC 5.22 X 10*6/uL (4.10-5.20); RDW 12.9 % (11.5-14.5); WBC 7.09 X 10*3/uL (4.50-10.00)
[2023-03-08 21:04] LABS: African American GFR (CKD) 70.5 (60.0-200.0); Albumin 4.3 g/dL (3.8-4.9); Albumin/Globulin Ratio 1.48 (1.60-3.17); Anion Gap 10.9 mmol/L (10.00-18.00); BUN/Creat Ratio 19.22 Ratio (12.00-20.00); Blood Urea Nitrogen 17.3 mg/dL (9.0-27.0); Carbon Dioxide 28.1 mmol/L (20.0-27.5); Globulin 2.9 g/dL (1.6-3.3); Non-African American GFR(CKD) 60.8 (60.0-200.0); Potassium 3.8 mmol/L (3.5-5.5); Total Bilirubin 0.6 mg/dL (0.30-1.20); Total Protein 7.2 g/dL (6.2-8.2)
== END | disposition home or self-care (01) ==
LOC: LABWHC1 10:40
PROVIDERS: ATTEND Internal Medicine Gastroenterology
DX: K76.0 Fatty (change of) liver, not elsewhere classified (principal)
CPT/HCPCS: 36415; 80053; 85027

== ENCOUNTER → 2023-05-29 | Outpatient (CLI) | payer MEDICARE ==
--- NOTE | 2023-05-29 14:38 | MM ---
Reason for Exam: Follow-up at short interval from prior study. Last screening mammogram was performed 7 month(s) ago. Patient History: Menarche at age 13. First Full-Term at age 25. Postmenopausal. Breast cancer, left, age 62. Previous chest radiation therapy at age 62. Estrogen for 1 year from age 51 until age 52. 09/26/2007, Excisional Biopsy on the Left side. Cyst Aspiration on the Right side. Core Biopsy on the Right side. Excisional Biopsy on the Right side. 09/10/2016, Benign Core Biopsy on the right side. 08/24/2013, Benign Core Biopsy on the left side. 09/10/2007, Malignant Core Biopsy on the left side. 04/12/2003, Stereotactic Core Biopsy. 03/20/2000, Benign Stereotactic Core Biopsy on the right side. Radiation Therapy, left. 2006, Radiation Therapy on the left side. Prior Study Comparison: 05/23/2021 Right Diagnostic Mammogram, [facility]. 11/23/2021 Bilateral Diagnostic Mammogram, [facility]. 11/26/2022 Bilateral MG 3D screening mammo w/cad, [facility]. Tissue Density: Right: The breast tissue is extremely dense which could obscure a lesion on mammography. Findings: Analyzed By CAD. Pattern appears stable. Multiple chronic nodularities are through the breast. No significant interval change is evident. No suspicious groups of microcalcifications, spiculated or lobular masses, architectural distortion or other secondary signs of malignancy are mammographically apparent. Overall Assessment: Probably benign, BI-RAD 3 Management: Diagnostic Mammogram of both breasts in 6 months. A negative mammogram report should not preclude additional follow up of suspicious palpable abnormalities. Patient should continue monthly self breast exam. A clinical breast exam by your physician is recommended on an annual basis and results should be correlated with mammographic findings. Electronically signed and approved by: Sammy Aggarwal D.O. Radiologis
== END | disposition home or self-care (01) ==
LOC: RADMAMWWP 12:50
PROVIDERS: ATTEND Family Medicine
DX: R92.8 Other abnormal and inconclusive findings on diagnostic imaging of breast (principal); Z78.0 Asymptomatic menopausal state; Z85.3 Personal history of malignant neoplasm of breast
CPT/HCPCS: 77061; 77065

== ENCOUNTER → 2023-11-29 | Outpatient (CLI) | payer MEDICARE ==
--- NOTE | 2023-11-29 13:09 | MM ---
Reason for Exam: Follow-up at short interval from prior study. Last mammogram was performed 1 year(s) and 1 month(s) ago. Patient History: Menarche at age 13. First Full-Term at age 25. Postmenopausal. Breast cancer, left, age 62. Previous chest radiation therapy at age 62. Estrogen for 1 year from age 51 until age 52. 09/26/2007, Excisional Biopsy on the Left side. Cyst Aspiration on the Right side. Core Biopsy on the Right side. Excisional Biopsy on the Right side. 09/10/2016, Benign Core Biopsy on the right side. 08/24/2013, Benign Core Biopsy on the left side. 09/10/2007, Malignant Core Biopsy on the left side. 04/12/2003, Stereotactic Core Biopsy. 03/20/2000, Benign Stereotactic Core Biopsy on the right side. Radiation Therapy, left. 2006, Radiation Therapy on the left side. Tissue Density: The breast tissue is extremely dense which could obscure a lesion on mammography. Findings: Analyzed By CAD. Waxing and waning cysts noted right breast which have been seen previously and ultrasound. Postoperative changes of lumpectomy left breast. No suspicious masses or calcifications seen. Overall Assessment: Benign, BI-RAD 2 Management: Screening Mammogram of both breasts in 1 year. . Results were given to the patient verbally at the time of exam. Patient should continue monthly self-breast exams. A clinical breast exam by your physician is recommended on an annual basis. This exam should not preclude additional follow-up of suspicious palpable abnormalities. Note on Trisha scores and lifetime risk: 1. A Trisha score greater than 3% is considered moderate risk. If this is the case, consider specialist referral to assess eligibility for a risk reducing agent. 2. If overall lifetime risk for the development of breast cancer is 20% or higher, the patient may qualify for future screening with alternating mammogram and breast MRI. Electronically signed and approved by: Herb Diallo M.D. Radiologis
== END | disposition home or self-care (01) ==
LOC: RADMAMWWP 12:48
PROVIDERS: ATTEND Family Medicine
DX: N60.01 Solitary cyst of right breast (principal); R92.343 Mammographic extreme density, bilateral breasts; Z78.0 Asymptomatic menopausal state; Z85.3 Personal history of malignant neoplasm of breast
CPT/HCPCS: 77062; 77066

== ENCOUNTER → 2024-03-05 | Outpatient (CLI) | payer MEDICARE ==
[2024-03-05 16:16] LABS: HCT 46.9 % (37.2-46.3); HGB 15.4 g/dL (12.0-15.0); MCH 30.3 pg (27.0-32.0); MCHC 32.8 g/dL (32.0-37.0); MCV 92.1 FL (80.0-97.0); Mean Platelet Volume 11.3 FL (9.5-12.2); NRBC Per 100 WBC 0 X 10*3/uL (0.00-0.01); Platelet Count 201 X 10*3/uL (140-440); RBC 5.09 X 10*6/uL (4.10-5.20); RDW 12.9 % (11.5-14.5); WBC 7.36 X 10*3/uL (4.50-10.00)
[2024-03-05 16:23] LABS: ALT 24 U/L (8-44); AST 41 U/L (13-35); Albumin 4.3 g/dL (3.8-4.9); Albumin/Globulin Ratio 1.65 Ratio (1.60-3.17); Alkaline Phosphatase 53 U/L (41-126); BUN/Creat Ratio 18.33 Ratio (12.00-20.00); Blood Urea Nitrogen 16.5 mg/dL (9.0-27.0); Calcium 10.4 mg/dL (8.7-10.3); Carbon Dioxide 27.8 mmol/L (21.6-31.8); Chloride 103 mmol/L (96-109); Globulin 2.6 g/dL (1.6-3.3); Glucose 91 mg/dL (70-110); Sodium 142 mmol/L (135-145); Total Bilirubin 0.6 mg/dL (0.3-1.2); Total Protein 6.9 g/dL (6.2-8.2)
== END | disposition home or self-care (01) ==
LOC: LABWHC1 11:19
PROVIDERS: ATTEND Family Medicine
DX: K76.0 Fatty (change of) liver, not elsewhere classified (principal)
CPT/HCPCS: 36415; 80053; 85027

== ENCOUNTER → 2024-12-28 | Outpatient (CLI) | payer MEDICARE ==
--- NOTE | 2024-12-28 18:09 | MM ---
Reason for Exam: Screening (asymptomatic). Last mammogram was performed 1 year(s) and 1 month(s) ago. Patient History: Menarche at age 13. First Full-Term at age 25. Postmenopausal. Breast cancer, left, age 62. Previous chest radiation therapy at age 62. Estrogen for 1 year from age 51 until age 52. 09/26/2007, Excisional Biopsy on the Left side. Cyst Aspiration on the Right side. Core Biopsy on the Right side. Excisional Biopsy on the Right side. 09/10/2016, Benign Core Biopsy on the right side. 08/24/2013, Benign Core Biopsy on the left side. 09/10/2007, Malignant Core Biopsy on the left side. 04/12/2003, Stereotactic Core Biopsy. 03/20/2000, Benign Stereotactic Core Biopsy on the right side. Radiation Therapy, left. 2006, Radiation Therapy on the left side. Prior Study Comparison: 11/26/2022 Bilateral MG 3D screening mammo w/cad, [facility]. 05/29/2023 Right MG 3D diag mammo w/cad RT, [facility]. 11/29/2023 Bilateral MG 3D diag mammo w/cad [facility], [facility]. Tissue Density: The breasts are heterogeneously dense, which may obscure small masses. Findings: Analyzed By CAD. Extensive chronic nodularity on the right with some interval fluctuation. Postsurgical and posttreatment changes left breast redemonstrated. There is no suspicious group of microcalcifications or new suspicious mass in either breast. Overall Assessment: Benign, BI-RAD 2 Management: Screening Mammogram of both breasts in 1 year. Patient should continue monthly self-breast exams. A clinical breast exam by your physician is recommended on an annual basis. This exam should not preclude additional follow-up of suspicious palpable abnormalities. [facility], , 12/28/2024 6:06 PM. Electronically signed and approved by: Zulema Palma M.D. Radiologist
== END | disposition home or self-care (01) ==
LOC: RADMAMWWP 10:34
PROVIDERS: ATTEND Family Medicine
DX: Z12.31 Encounter for screening mammogram for malignant neoplasm of breast (principal); R92.333 Mammographic heterogeneous density, bilateral breasts; Z78.0 Asymptomatic menopausal state; Z85.3 Personal history of malignant neoplasm of breast
CPT/HCPCS: 77063; 77067